=== PATIENT | female | born 1970 | race Caucasian/White ===

== ENCOUNTER 2023-11-13 05:10 | Emergency (ER) | payer SELFPAY ==
[2023-11-13 05:15] VITALS: BP 108/80
[2023-11-13 05:28] VITALS: BMI 27.0
[2023-11-13 06:25] LABS: % Basophils 0.5 % (0-2); % Immature Granulocytes 0.3 % (0-0.5); % Lymphocytes 36.7 % (20.5-51.1); % Monocytes 8.5 % (1.7-9.3); Absolute Eosinophils 0.2 10^3/uL (0-0.7); Absolute Lymphocytes 2.2 10^3/uL (1.2-3.4); Absolute Monocytes 0.5 10^3/uL (0.1-0.6); Hematocrit 35.7 % (37.0-47.0); Hemoglobin 12.4 g/dL (12.0-16.0); Mean Corp Hgb Conc. 34.7 g/dL (33.0-37.0); Mean Corpuscular Hgb 30.9 pg (27.0-31.0); Nucleated Red Blood Cells % 0 %; Platelet Count 200 10^3/uL (130-400); Red Blood Cell Count 4.01 10^6/uL (4.20-5.40); Red Cell Dist. Width 12.8 % (11.5-14.5)
[2023-11-13] MEDS: NSS 1000 IV (06:27)
--- NOTE | 2023-11-13 06:29 | ED.GENMED ---
History of Present Illness
General
Chief Complaint: Headache
Source: patient
Exam Limitations: none
Time Seen by Provider: 11/13/23 05:38
Travel History
Have you had any contact with someone who has COVID-19?: No
Do you have any symptoms of coronavirus? Fever > 100 degrees, chills, cough, shortness of breath, sore throat, loss of taste or smell, muscle aches, or headache?: No
History of Present Illness
History of Present Illness:
53-year-old female complaining of typical but severe migraine. Left retrobulbar. Some nausea and photophobia. Has been there for 8 days for migraines last 3 days. She has had migraines for 40 years. Rarely has to go to the hospital. Usually
can manage at home. No other neurologic symptoms fever or other unusual complaints. Under significant stress with her dad with dementia. Lives in [place]. In our area to manage his care temporarily
Past History
Past History
ED Past Medical History: Psychiatric (Bipolar/panic disorder) and Other (Migraines)
ED Past Surgical History: , Gynecological, Orthopedic, Tonsilectomy and Other (Inguinal hernia repair)
Review of Systems
Review of Systems
All Other Systems: Not applicable
Constitutional: Denies fever
Neurological: Denies dizzy, weakness or numbness
Phy Exam
Physical Exam
Physical Exam:
GENERAL: Alert and oriented in no apparent distress
EYE: Orbits normal. Extraocular muscles intact discharge
NECK: Supple, nontender
ENT: Pharynx without erythema
CARDIAC: Regular rate and rhythm without any obvious murmurs.
LUNGS: Clear breath sounds,normal
ABDOMEN: Soft, without focal tenderness or distention
NEUROLOGICAL: Alert and oriented , cranial nerves II through XII intact. Speech normal. Rosin Barrel Filler normal. Light touch intact.
SKIN: Warm and dry, no rash or lesion, no discoloration, skin intact.
MUSCULOSKELETAL: No edema,no deformity.Good color
PSYCH: Normal and appropriate interaction.
Course
Orders/Labs/Results
Orders:
Orders
11/13/23 05:58
IV Insert/Care/Rem.- Treatment PRN
0.9% Sodium Chloride 1000 ml [Nss] 1,000 ml IV BOLUS
11/13/23 05:59
Acetaminophen 1000MG/100Ml [Ofirmev] 1,000 mg in 100 ml IV ONCE
Acetaminophen IV Indication:: ED Narcotic Naive Pt-ONCE
HYDROmorphone [Dilaudid] 1 mg IV NOW STA
Ondansetron Injectable [Zofran] 4 mg IV NOW STA
11/13/23 06:19
Basic Metabolic Panel Urgent
Complete Blood Count/With Diff Urgent
Abnormal Lab Results
11/13/23
06:19
RBC 4.01 L 10^6/uL
(4.20-5.40)
Hct 35.7 L %
(37.0-47.0)
Chloride 111 H mmol/L
(98-107)
Carbon Dioxide 20 L mmol/L
(22-30)
Creatinine 0.5 L mg/dL
(0.6-1.0)
11/13/23 06:19
11/13/23 06:19
Vital Signs
Initial and Last Documented VS:
Initial Vital Signs
Temp Pulse Resp BP Pulse Ox
98.5 F 90 20 108/80 100
11/13/23 05:15 11/13/23 05:15 11/13/23 05:15 11/13/23 05:15 11/13/23 05:15
Last Documented Vital Signs
Temp Pulse Resp BP Pulse Ox
98.5 F 82 16 108/66 95
11/13/23 05:15 11/13/23 08:08 11/13/23 08:08 11/13/23 08:08 11/13/23 08:08
MDM/Problems Addressed
Differential Diagnosis Includes:
All consistent with migraine. More severe and more prolonged but typical migraine for the patient. Has had migraines for 40 years. No indication for radiologic testing at this time. Patient has multiple allergy typical medications we would use
for migraine. Very reluctant to give a dose of Dilaudid but she states this is the only thing that works. After further discussion I will reluctantly give her 1 single dose. I did stress to her that we would not do this recurrently. As we do not
feel its optimal for migraines at this time. Patient did take an Uber here and states she will take an Uber home
*Critical Care Note
Total Time (30-74mins, 75-104mins- exclusive of procedures): Not Applicable
Update Note
Update Note:
Patient feeling improved. Medically stable for discharge. She will be getting an Uber prior to discharge
Patient ambulated out of the ER without difficulty to her Uber
ED Attending Note
-
Portions of this chart may have been created with voice recognition software.� Occasional wrong word or��sound alike� substitutions may have occurred due to the inherent limitations of voice recognition software.
Discharge Plan
Departure
Patient Disposition: Home (Routine Discharge)
Date of Disposition: 11/13/23
Time of Disposition: 07:31
Patient with high blood pressure during this ER visit?: No
Discharge Problem:
Migraine headache
Instructions: Migraines (DC), Headache, Adult (DC)
Referrals:
NONE,* [Family Provider] -
Activity Restrictions/Additional Instructions:
Call your physician for close follow-up
Interventions
Interventions:
*Risk Screen - Suicide Last Done: 11/13/23 05:15
*General Assessment Last Done: 11/13/23 05:27
*Neglect/Abuse Screening Last Done: 11/13/23 05:15
ED- Fall Risk Assessment Last Done: 11/13/23 08:13
*ED COVID-19 Vaccine History Last Done: 11/13/23 05:15
*Nursing Disposition Last Done: 11/13/23 08:13
ED- Neurological Assessment Last Done: 11/13/23 05:28
Discharge Date and Time
Discharge Date/Time: 11/13/23 08:14
Print Language: SPANISH
[2023-11-13] MEDS: ZOFRAN 4 MG IV (06:32)
[2023-11-13] MEDS: DILAUDID 1 MG IV (06:37)
[2023-11-13 06:38] LABS: Blood Urea Nitrogen 11 mg/dl (7-17); Calcium 8.8 mg/dl (8.4-10.2); Carbon Dioxide 20 mmol/L (22-30); Chloride 111 mmol/L (98-107); Estimated Creatinine Clearance 101 ml/min; Glucose 92 mg/dl (70-99); Sodium 137 mmol/L (135-145); eGFR > 60.00
[2023-11-13] MEDS: OFIRMEV 100 IV (06:40)
[2023-11-13 06:42] VITALS: BP 101/74
[2023-11-13 08:08] VITALS: BP 108/66
== END 2023-11-13 08:14 | disposition home or self-care (01) ==
LOC: EMR 05:10
PROVIDERS: EMERGENCY PHYSICIAN Emergency Medicine
DX: G43.909 Migraine, unspecified, not intractable, without status migrainosus (principal)
CPT/HCPCS: 99284; 96374; 96375 ×2; 80048; 85025